=== PATIENT | male | born 1950 | race Two or more races ===

== ENCOUNTER 2023-12-05 09:55 | Day surgery (SDC) | payer OTHER ==
[2023-11-30 13:31] VITALS: BMI 27.4
[2023-12-05 11:33] VITALS: RESP 18; TEMP 97
[2023-12-05 11:50] VITALS: BP 121/71; PULSE 74
== END 2023-12-05 12:21 | disposition home or self-care (01) ==
LOC: FASU-ENDO 09:55
PROVIDERS: ATTEND Internal Medicine Gastroenterology
PROC: 0DB68ZX Excision of Stomach, Via Natural or Artificial Opening Endoscopic, Diagnostic (ICD-10-PCS; 2023-12-05)
PROC: 0DB58ZX Excision of Esophagus, Via Natural or Artificial Opening Endoscopic, Diagnostic (ICD-10-PCS; 2023-12-05)
PROC: 0DB98ZX Excision of Duodenum, Via Natural or Artificial Opening Endoscopic, Diagnostic (ICD-10-PCS; principal; 2023-12-05 11:19)
DX: K29.50 Unspecified chronic gastritis without bleeding (principal); K29.80 Duodenitis without bleeding; K31.7 Polyp of stomach and duodenum; K31.9 Disease of stomach and duodenum, unspecified; R12 Heartburn
CPT/HCPCS: 88305-TC; 88342-TC